=== PATIENT | female | born 1970 | race Caucasian/White ===

== ENCOUNTER 2021-01-15 02:55 | Emergency (ER) | payer SELFPAY ==
[2021-01-15] MEDS ORDERED: Sodium Chloride 0.9% 10 ML Syringe FLUSH PRN (03:08)
[2021-01-15] MEDS ORDERED: HYDROmorphone 1 MG/ML Syringe IVPUSH ONE (03:09)
[2021-01-15] MEDS ORDERED: Ondansetron 4 MG/2 ML SDV IVPUSH ONE (03:09)
[2021-01-15] MEDS ORDERED: Sodium Chloride 0.9% 1,000 ML IV SCH (03:15)
--- NOTE | 2021-01-15 03:16 | EDM.PDOC ---
ED HPI GENERAL MEDICAL PROBLEM - General Chief Complaint: Abdominal Pain Stated Complaint: Right lower abdominal/groin pain Time Seen by Provider: 01/15/21 03:05 Source of Information: Reports: Patient History Limitations: Reports: No Limitations - History of Present Illness INITIAL COMMENTS - FREE TEXT/NARRATIVE: Pt. presents to ER with complaints of R lower abdominal/suprapubic pain. Pt. states that the discomfort started yesterday afternoon. Pain has been getting worse and has come on gradually. Pt. states that she had a normal BM today. Denies any bloody or tarry stools. She underwent a total hyst approx. 20 years ago. She denies any dysuria, frequency, urgency, hematuria, or pyuria. She is not experiencing any fever or chills. Denies any substernal chest pain or shortness of breath. Denies any flank pain. She has not been diaphoretic. Denies any recent trauma to the area. She states that she has not experienced discomfort like this in the past. Pt. states that the discomfort crescendos when she is walking and moving. Denies any other previous abdominal surgeries. She has her appendix. Onset Date: 01/13/21 Location: Reports: Abdomen Quality: Reports: Ache Right lower abdominal pain/groin Pain Score (Numeric/FACES): 4 - Related Data Allergies Allergy/AdvReac Type Severity Reaction Status Date / Time prednisone Allergy Hives Verified 06/04/18 12:04 sertraline [From Zoloft] Allergy Hives Verified 06/04/18 12:04 Home Meds: Home Meds . [No Known Home Meds] 06/04/18 [History] Past Medical History HEENT History: Reports: Other (See Below) Other HEENT History: legally blind L eye Psychiatric History: Reports: Addiction, Depression - Past Surgical History Female Surgical History: Reports: Hysterectomy Neurological Surgical History: Reports: Other (See Below) Other Neurological Surgeries/Procedures: spinal cord stimulator implant Musculoskeletal Surgical History: Reports: Other (See Below) Other Musculoskeletal Surgeries/Procedures:: foot surgery. spinal cord stimulator implant L lower back ED ROS GENERAL - Review of Systems Review Of Systems: See Below Constitutional: Reports: No Symptoms HEENT: Reports: No Symptoms Respiratory: Reports: No Symptoms Cardiovascular: Reports: No Symptoms Endocrine: Reports: No Symptoms. Denies: Fatigue GI/Abdominal: Reports: Abdominal Pain. Denies: Black Stool, Bloody Stool, Constipation, Hematemesis, Hematochezia, Melena, Nausea, Vomiting : Reports: No Symptoms Musculoskeletal: Reports: No Symptoms Skin: Reports: No Symptoms Neurological: Reports: No Symptoms Psychiatric: Reports: No Symptoms Hematologic/Lymphatic: Reports: No Symptoms Immunologic: Reports: No Symptoms ED EXAM, GENERAL - Physical Exam Exam: See Below Exam Limited By: No Limitations General Appearance: Alert, WD/WN, No Apparent Distress GI/Abdominal: Soft, No Organomegaly, No Distention, No Mass, Pelvis Stable, Guarding, Tender (Female) Exam: Deferred. No: Vaginal Bleeding, Vaginal Discharge Rectal (Female) Exam: Deferred Back Exam: No: CVA Tenderness (L), CVA Tenderness (R) Extremities: Normal Inspection, Normal Range of Motion, Normal Capillary Refill Neurological: Alert, Oriented, CN II-XII Intact, Normal Cognition, Normal Gait, Normal Reflexes, No Motor/Sensory Deficits Psychiatric: Normal Affect, Normal Mood Course - Vital Signs Last Recorded V/S: Last Vital Signs Temp 36.8 C 01/15/21 02:55 Pulse 90 01/15/21 02:55 Resp 16 01/15/21 02:55 BP 133/78 01/15/21 02:55 Pulse Ox 97 01/15/21 02:55 - Orders/Labs/Meds Orders: Active Orders 24 hr Category Date Time Status Abdomen Pelvis w Cont [CT] Stat Exams 01/15/21 03:45 Taken Sodium Chloride 0.9% [Normal Saline] 1,000 ml Med 01/15/21 03:15 Active IV ASDIRECTED Sodium Chloride 0.9% [Saline Flush] Med 01/15/21 03:08 Active 10 ml FLUSH ASDIRECTED PRN Peripheral IV Insertion Adult [OM.PC] Routine Oth 01/15/21 03:09 Ordered Medication Orders Sodium Chloride (Normal Saline) 1,000 mls @ 1,000 mls/hr IV ASDIRECTED KIESHA Last Admin: 01/15/21 03:27 Dose: 1,000 mls/hr Documented by: FARNCES Sodium Chloride (Sodium Chloride 0.9% 10 Ml Syringe) 10 ml FLUSH ASDIRECTED PRN PRN Reason: Keep Vein Open Labs: Laboratory Tests 01/15/21 01/15/21 01/15/21 Range/Units 03:10 03:21 03:21 WBC 9.0 (4.0-10.0) x10^3/uL RBC 4.35 (4.00-5.50) x10^6/uL Hgb 12.9 (12.0-16.0) g/dL Hct 38.3 (33.0-47.0) % MCV 88.0 (78.0-93.0) fL MCH 29.7 (26.0-32.0) pg MCHC 33.7 (32.0-36.0) g/dL RDW Coeff of Riri 12.8 (10.0-15.0) % Plt Count 324 (130-400) x10^3/uL Add Manual Diff Yes Neutrophils % (Manual) 46 L (50-80) % Lymphocytes % (Manual) 38 (25-50) % Reactive Lymphs % 4 H (0) % Monocytes % (Manual) 2 (2-11) % Eosinophils % (Manual) 10 H (0-4) % Smudge Cells Few H Platelet Estimate Adequate Giant Platelets Rare H PT 9.7 L (9.9-12.5) SEC INR 0.9 L (2.0-3.5) Sodium (136-145) mmol/L Potassium (3.5-5.1) mmol/L Chloride (98-107) mmol/L Carbon Dioxide (21-32) mmol/L Anion Gap (5-15) mmol/L BUN (7-18) mg/dL Creatinine (0.55-1.02) mg/dL Est Cr Clr Drug Dosing mL/min Estimated GFR (MDRD) Glucose (70-99) mg/dL Calcium (8.5-10.1) mg/dL Corrected Calcium (8.5-10.1) mg/dL Phosphorus (2.6-4.7) mg/dL Magnesium (1.8-2.4) mg/dL Total Bilirubin (0.2-1.0) mg/dL AST (15-37) U/L ALT (14-59) U/L Alkaline Phosphatase (46-116) U/L Total Protein (6.4-8.2) g/dL Albumin (3.4-5.0) g/dL Globulin Albumin/Globulin Ratio Urine Color Yellow (YELLOW) Urine Appearance Clear (CLEAR) Urine pH 6.0 (5.0-8.0) Ur Specific [place] >=1.030 Urine Protein Negative (NEGATIVE) mg/dL Urine Glucose (UA) Negative (NEGATIVE) mg/dL Urine Ketones Negative (NEGATIVE) mg/dL Urine Occult Blood Negative (NEGATIVE) Urine Nitrite Negative (NEGATIVE) Urine Bilirubin Negative (NEGATIVE) Urine Urobilinogen 0.2 (0.2) EU/dL Ur Leukocyte Esterase Negative (NEGATIVE) 01/15/21 Range/Units 03:21 WBC (4.0-10.0) x10^3/uL RBC (4.00-5.50) x10^6/uL Hgb (12.0-16.0) g/dL Hct (33.0-47.0) % MCV (78.0-93.0) fL MCH (26.0-32.0) pg MCHC (32.0-36.0) g/dL RDW Coeff of Riri (10.0-15.0) % Plt Count (130-400) x10^3/uL Add Manual Diff Neutrophils % (Manual) (50-80) % Lymphocytes % (Manual) (25-50) % Reactive Lymphs % (0) % Monocytes % (Manual) (2-11) % Eosinophils % (Manual) (0-4) % Smudge Cells Platelet Estimate Giant Platelets PT (9.9-12.5) SEC INR (2.0-3.5) Sodium 141 (136-145) mmol/L Potassium 3.1 L (3.5-5.1) mmol/L Chloride 103 (98-107) mmol/L Carbon Dioxide 29 (21-32) mmol/L Anion Gap 12.1 (5-15) mmol/L BUN 14 (7-18) mg/dL Creatinine 1.0 (0.55-1.02) mg/dL Est Cr Clr Drug Dosing 61.23 mL/min Estimated GFR (MDRD) 59 Glucose 106 H (70-99) mg/dL Calcium 9.0 (8.5-10.1) mg/dL Corrected Calcium 9.3 (8.5-10.1) mg/dL Phosphorus 5.2 H (2.6-4.7) mg/dL Magnesium 2.1 (1.8-2.4) mg/dL Total Bilirubin 0.2 (0.2-1.0) mg/dL AST 19 (15-37) U/L ALT 37 (14-59) U/L Alkaline Phosphatase 97 (46-116) U/L Total Protein 7.4 (6.4-8.2) g/dL Albumin 3.6 (3.4-5.0) g/dL Globulin 3.8 Albumin/Globulin Ratio 0.95 Urine Color (YELLOW) Urine Appearance (CLEAR) Urine pH (5.0-8.0) Ur Specific [place] Urine Protein (NEGATIVE) mg/dL Urine Glucose (UA) (NEGATIVE) mg/dL Urine Ketones (NEGATIVE) mg/dL Urine Occult Blood (NEGATIVE) Urine Nitrite (NEGATIVE) Urine Bilirubin (NEGATIVE) Urine Urobilinogen (0.2) EU/dL Ur Leukocyte Esterase (NEGATIVE) Meds: Medications Generic Name Dose Route Start Last Admin Trade Name Freq PRN Reason Stop Dose Admin Sodium Chloride 1,000 mls @ 1,000 mls/hr 01/15/21 03:15 01/15/21 03:27 Normal Saline IV 1,000 mls/hr ASDIRECTED KIESHA Administration Sodium Chloride 10 ml 01/15/21 03:08 Sodium Chloride 0.9% 10 Ml Syringe FLUSH ASDIRECTED PRN Keep Vein Open Discontinued Medications Generic Name Dose Route Start Last Admin Trade Name Freq PRN Reason Stop Dose Admin Hydromorphone HCl 1 mg 01/15/21 03:09 01/15/21 03:30 Hydromorphone 1 Mg/Ml Syringe IVPUSH 01/15/21 03:10 1 mg ONETIME ONE Administration Iopamidol 75 ml 01/15/21 04:31 01/15/21 04:32 Iopamidol 612 Mg/Ml 100 Ml Bottle IVPUSH 01/15/21 04:32 100 ml ONETIME ONE Administration Ondansetron HCl 4 mg 01/15/21 03:09 01/15/21 03:27 Ondansetron 4 Mg/2 Ml Sdv IVPUSH 01/15/21 03:10 4 mg ONETIME ONE Administration - Radiology Interpretation Free Text/Narrative:: CT abd/pelvis obtained with IV contrast. No evidence of any significant pathology. Increased stool burden noted on exam. Appendix normal. + diverticulosis, no diverticulitis. Departure - Departure Time of Disposition: 06:13 Disposition: Home, Self-Care 01 Clinical Impression: Constipation - Discharge Information Instructions: Constipation, Adult, [id number], Polyethylene Glycol powder Referrals: PCP,None [Primary Care Provider] - Forms: ED Department Discharge Additional Instructions: Home to rest. Off work today. Tylenol or ibuprofen as needed for discomfort. You are dehydrated. Minimize consumption of pop and drink more water. Miralax powder 17 gm. (one capful) mixed in water daily to help soften your stool. Sepsis Event Note (ED) - Focused Exam Vital Signs: Vital Signs Temp Pulse Resp BP Pulse Ox 01/15/21 02:55 36.8 C 90 16 133/78 97 - Problem List Review Problem List Initiated/Reviewed/Updated: Yes - My Orders Last 24 Hours: My Active Orders 01/15/21 03:08 Sodium Chloride 0.9% [Saline Flush] 10 ml FLUSH ASDIRECTED PRN 01/15/21 03:09 Peripheral IV Insertion Adult [OM.PC] Routine 01/15/21 03:15 Sodium Chloride 0.9% [Normal Saline] 1,000 ml IV ASDIRECTED 01/15/21 03:45 Abdomen Pelvis w Cont [CT] Stat - Assessment/Plan Last 24 Hours: My Active Orders 01/15/21 03:08 Sodium Chloride 0.9% [Saline Flush] 10 ml FLUSH ASDIRECTED PRN 01/15/21 03:09 Peripheral IV Insertion Adult [OM.PC] Routine 01/15/21 03:15 Sodium Chloride 0.9% [Normal Saline] 1,000 ml IV ASDIRECTED 01/15/21 03:45 Abdomen Pelvis w Cont [CT] Stat Plan: Home to rest. Off work today. Tylenol or ibuprofen as needed for discomfort. You are dehydrated. Minimize consumption of pop and drink more water. Miralax powder 17 gm. (one capful) mixed in water daily to help soften your stool.
[2021-01-15 03:51] LABS: ANION GAP 12.1 mmol/L (5-15)
[2021-01-15] MEDS ORDERED: Iopamidol 612 MG/ML 100 ML Bottle IVPUSH ONE (04:31)
--- NOTE | 2021-01-15 08:01 | CT ---
[id number] CT/CT Abdomen Pelvis W IV EXAM: CT Abdomen Pelvis W IV CLINICAL DATA: RIGHT LOWER QUADRANT ABDOMEN PAIN. COMPARISON STUDY: None. FINDINGS: Lung bases are clear. The liver, spleen, gallbladder, pancreas, adrenal glands and kidneys are unremarkable. No bowel obstruction or inflammation. The appendix is visualized and appears normal. Colonic diverticulosis without evidence of acute diverticulitis. Moderate amount retained stool within the colon. No lymphadenopathy, free fluid, or pneumoperitoneum. No fluid collection. Scattered changes of spondylosis the spine. No fracture or osseous lesion. Spinal stimulator in place. IMPRESSION: The appendix is visualized and appears normal. Moderate amount of retained stool within the colon. Correlate for constipation. Alpesh Issa DO 01/15/21 0800 Thank you for allowing us to participate in the care of your patient.
== END 2021-01-15 06:25 | disposition home or self-care (01) ==
LOC: VM.ED 02:55
DX: K59.00 Constipation, unspecified (principal); Z88.8 Allergy status to other drugs, medicaments and biological substances
CPT/HCPCS: 74177; 80053; 81003; 83735; 84100; 85025; 85610; 96374; 96375; 99283; 99284-25; J1170; J2405; J7030; Q9967